=== PATIENT | female | born 1975 | race Caucasian/White ===

== ENCOUNTER → 2019-03-16 | Outpatient (CLI) | payer BC ==
[~2019-03-16] MED LIST: ACID REDUCER200 MG PO; BCP TD; CELEXA 20MG20 MG/TA1 PO; CELEXA 20MG20 MG/TAB PO; INDERAL 10MG10 MG PO; MELATONIN3 M1 PO; MOTRIN 600600 MG/TAB PO; PERCOCET 325 MG1 TA2 PO; PRENATAL1 TA1 PO
== END ==
LOC: MC.RAD 14:40
DX: Z12.31 Encounter for screening mammogram for malignant neoplasm of breast (principal)

== ENCOUNTER → 2023-08-24 | Outpatient (CLI) | payer BC | LOC: MC.RAD 10:19 | DX: Z12.31 Encounter for screening mammogram for malignant neoplasm of breast (principal) ==